=== PATIENT | male | born 1945 | race Caucasian/White ===

== ENCOUNTER 2016-09-07 13:52 | Inpatient (IN) | payer MEDICARE, OTHER ==
--- NOTE | ~2016-09-07 | HP ---
History And Physical [facility] [address] [place]. [address] NAME: KEENAN HERNANDES : 45 STATUS : ADM IN [facility]#: [id number] AGE: 70 ADM/REG DATE : 09/07/16 MR#: [id number] REPORT SERV DATE: 09/08/16 DICTATED BY: LUCIANA ROSA DATE: 09/07/16 REPORT STATUS : Draft TRANSCRIBED BY: MODTerrence DATE: 09/07/16 DATE OF ADMISSION: 09/07/2016 CHIEF COMPLAINT: The patient was transferred from [facility] to [facility] with concern of acute bilateral pulmonary embolus, questionable pneumonia, and severe abdominal pain following nine days post prostatectomy. HISTORY OF PRESENT ILLNESS: This is a 70-year-old male with medical history significant for prostate cancer, status post prostatectomy nine days ago, nephrolithiasis status post ureteral stones removal three weeks ago, who presented to the emergency department at [facility] with chief complaints of abdominal pain and shortness of breath. The patient reported that he underwent a lithotripsy three weeks ago without any significant complications. He reported he was in good health and subsequently underwent a prostatectomy performed by Dr. Trujillo about nine days ago for stage III prostate cancer. He reported that the surgery went successfully without any complications and was subsequently discharged home with a urinary Trujillo catheter. He went back to Dr. Trujillo's office 24 hours ago to remove the Trujillo without any complication; however, when he got home, he reported that he was only able to have minimal urine output, subsequently developed severe abdominal pain. The pain was 10/10 in severity, sharp in nature, radiating to the groin area. No known aggravating or relieving factor. The pain became progressively worsen and subsequently noted to have develop severe difficulty breathing both on exertion and progressively it got worse to the point that he became short of breath at rest. Given his worsening shortness of breath and severe abdominal pain he decided to go to the nearest emergency room at [facility] where he was evaluated. On arriving at the emergency room, he was noted to be hypoxic, tachycardic, and severe abdominal pain. He had a CTA of the chest and a CT scan of the abdomen and pelvis. The CTA showed massive bilateral pulmonary embolus, and new onset infiltrates. Also concerning for pneumonia. The CT of the abdomen and pelvis revealed free fluid within the pelvis and surrounding the liver. Also noted was fat stranding surrounding the descending colon concerning for early diverticulitis. The patient also noted to have positive urine concerning for urinary tract infection. Given the patient recently had surgery with Dr. Trujillo, the patient's family requested a transfer to [facility] for further evaluation. At the bedside during my review of the examination, the patient denied any fever, denies any chills, denies any cough. No headache, no blurry vision, no upper or lower extremity weakness. Denies any nausea or vomiting, but confirmed the presence of persistent abdominal pain as stated above. REVIEW OF SYSTEMS: Essentially as per HPI. A 12-point review of systems performed, positive findings as per HPI. Rest of the systems essentially negative. ALLERGIES: THE PATIENT IS ALLERGIC TO PENICILLIN BY RASH. HOME MEDICATION: 1. Meloxicam oral one p.o. daily. History And Physical [address] [address] NAME: KEENAN HERNANDES : 45 STATUS : ADM IN [facility]#: [id number] AGE: 70 ADM/REG DATE : 09/07/16 MR#: [id number] REPORT SERV DATE: 09/08/16 DICTATED BY: LUCIANA ROSA DATE: 09/07/16 REPORT STATUS : Draft TRANSCRIBED BY: MOHSEN DATE: 09/07/16 2. Omeprazole one p.o. daily. 3. Vitamin D one p.o. daily. 4. Hydrocodone/acetaminophen one p.o. b.i.d. 5. Michelle one p.o. daily. PAST MEDICAL HISTORY: 1. Prostate cancer, stage 3. 2. Nephrolithiasis. PAST SURGICAL HISTORY: 1. Prostatectomy surgery. 2. Lithotripsy. 3. Skin surgeries. SOCIAL HISTORY: Quit tobacco use several years ago. Drinks alcohol occasionally. Denies illicit drug use. Presently cohabits with his without any difficulty. The patient is currently retired. FAMILY HISTORY: Significant for history of congestive heart failure in his brother who passed at the age of 70. Also noted to have a history significant for lung cancer in the mother. PHYSICAL EXAMINATION: VITAL SIGNS: At the time of my evaluation, blood pressure was 140/53 mmHg, respiratory rate was 40 cycles per minute, saturating 92% on 10 L of intranasal oxygen, and pulse rate 118 beats cycle per minute. CONSTITUTIONAL: He is ill-appearing in severe acute pain distress due to abdominal pain. Also noted to be in mild respiratory distress due to shortness of breath. HEENT: Extraocular muscle intact. Pupils equal, round, and reactive. Not pale. Trace cyanotic. NECK: Supple. CHEST: Nontender. LUNGS: Bibasilar rales noted. HEART: S1, S2. Regular rate and rhythm. No murmurs. ABDOMEN: Bowel sounds normoactive, diffuse. Severe abdominal tenderness with guarding. Suprapubic tenderness without rebound. Noted to have diffuse abdominal tenderness and guarding. No rebound tenderness. No palpably enlarged organomegaly. EXTREMITIES: No pedal edema. NEUROLOGY: Alert and oriented x3. Strength in all extremities 5/5. LABORATORY DATA: Laboratory data at [facility]. WBC 13.8, hemoglobin 13.9, hematocrit 42.0, and platelets 287. Chemistry: Serum sodium 141, serum potassium 3.9, serum chloride 105, bicarb 28, serum creatinine 1.2, BUN 20.9, glucose 122, albumin 3.1, AST 20, ALT 24, and alkaline phosphatase 100. History And Physical [address] [address] NAME: KEENAN HERNANDES : 45 STATUS : ADM IN [facility]#: [id number] AGE: 70 ADM/REG DATE : 09/07/16 MR#: [id number] REPORT SERV DATE: 09/08/16 DICTATED BY: LUCIANA ROSA DATE: 09/07/16 REPORT STATUS : Draft TRANSCRIBED BY: MODL DATE: 09/07/16 IMAGIN. CTA of the chest reports segmental and subsegmental left upper and lingular pulmonary emboli. Extensive emboli noted within the right middle and lower lobe arteries. 2. Right lower lobe infiltrate present. 3. Abdomen and pelvis, preliminary report from [facility]. Bibasilar atelectasis. Free fluid in the pelvis and surrounding liver. Left renal cyst. Anterior abdominal wall gas which could be secondary to recent instrumentation. Fat stranding surrounding the descending colon concerning for early diverticulitis. SUMMARY: This is a 70-year-old male, who transferred from [facility] to [facility] with concern for bilateral PE, right lower lobe pneumonia, acute diverticulitis, urinary tract infection, and nine days post prostatectomy. ASSESSMENT AND PLAN: 1. Hypoxic respiratory failure secondary to massive bilateral pulmonary embolism and pneumonia. The patient is currently saturating at 92% on 10 L of nasal oxygen. I have recommended, if the patient continue to be persistently hypoxic we will transition the patient to Vapotherm ICU. We will also have a low threshold of consult in the ICU for possible transfer for intubation for persistent respiratory failure. 2. Bilateral pulmonary embolus. Presently the patient on heparin drip. I will hold off initiating chronic anticoagulation at this point, given that the patient may require an additional abdominal intervention. Given the patient has a history of recent surgery the patient will not be a candidate for systemic thrombolysis. Hence, we will continue to monitor patient closely. Also, the patient's blood pressure is currently holding. If the patient become hypertensive I will consider transferring to ICU. 3. Pneumonia. CT scan at the outside hospital showed a right pulmonary infiltrate. WBC is elevated at 13.3. We will check a procalcitonin. We will also order sputum culture and blood cultures at this time. We will place the patient on vanc and cefepime. 4. Abdominal pain likely secondary to urinary retention as well as acute diverticulitis. Free fluid within the pelvis and surrounding liver as well as anterior abdominal wall gas likely secondary to instrumentation from prostatectomy. I have consulted Urology to further evaluate the patient given recent prostatectomy. We will also continue to monitor the patient closely. We will continue IV antibiotics at this time. 5. Prostate cancer, stage III, status post prostatectomy. We will continue to monitor the patient at this time. 6. Urinary tract infection. We will send for UA, urinalysis, and urine culture. We will continue the patient on broad-spectrum antibiotics, pending urine culture. 7. Per family wishes the patient is currently full code. IOO/MODL Luciana Rosa MD / [id number] History And Physical [address] [address] NAME: KEENAN HERNANDES : 45 STATUS : ADM IN PAT#: [id number] AGE: 70 ADM/REG DATE : 09/07/16 MR#: [id number] REPORT SERV DATE: 09/08/16 DICTATED BY: LUCIANA ROSA DATE: 09/07/16 REPORT STATUS : Draft TRANSCRIBED BY: MOHSEN DATE: 09/07/16 CC: MD Kirk Osman MD
--- NOTE | ~2016-09-07 | CN ---
Consultation Report [facility] [address] [place]. [address] NAME: KEENAN HERNANDES : 45 STATUS : ADM IN [facility]#: [id number] AGE: 70 ADM/REG DATE : 09/07/16 MR#: [id number] REPORT SERV DATE: 09/08/16 DICTATED BY: SHIMA SAMPSON DATE: 09/07/16 REPORT STATUS : Draft TRANSCRIBED BY: MODL DATE: 09/07/16 UROLOGY CONSULT DATE OF CONSULTATION: This consult is from Dr. Benoit regarding abdominal pain. CHIEF COMPLAINT: "My belly hurts". I am seeing this patient for Dr. Trujillo in his absence. HISTORY: This is a 70-year-old gentleman, who is status post a robotic prostatectomy by Dr. Trujillo on 08/29/2016. The patient states, Friday he was outside walking with his when he had sudden shortness of breath. He has had shortness of breath, especially with exertion since that time. Yesterday, he had his catheter removed by Dr. Trujillo in his office. The patient states that he had 1 good void with a stream after that, but since that time, he has been straining with a dribbling stream and leaking into a diaper. Last night around 11 p.m., he began having abdominal pain. He though it was gas pain from a milkshake. He presented to the [facility] in [place] at 4 a.m. this morning. They diagnosed him with bilateral pulmonary emboli, right lower lobe pneumonia, and a urinary tract infection. His white blood cell count was 13.8 with a left shift. Creatinine of 1.2. Urinalysis was positive for nitrites, 3+ leukocyte esterase, greater than 100 red blood cells, greater than 100 white blood cells, many bacteria. CT scan of the abdomen also mentions free fluid in the pelvis and around the liver and anterior abdominal wall gas, which may be secondary to recent instrumentation, fat stranding surrounding the descending colon concerning for early diverticulitis. To my eyes, his bladder is also largely distended. The amount of fluid around the liver is quite small. The pelvic fluid appears within normal limits at this point, postoperatively. He was transferred to [facility] on the hospitalist service for higher level of care due to his lung issues. PAST MEDICAL HISTORY: Significant for prostate cancer, kidney stones, and skin cancer treated with radiation. PAST SURGICAL HISTORY: Radical prostatectomy on 08/29/2016. He has also had lithotripsy for kidney stones. ALLERGIES: PENICILLIN. MEDICATIONS: At home, meloxicam, omeprazole, vitamin D, hydrocodone, and Michelle. SOCIAL HISTORY: He is . He used to smoke cigarettes. REVIEW OF SYSTEMS: GENERAL: He denies fever, chills. NEUROLOGIC: Denies symptoms. Consultation Report [address] [place]. [address] NAME: KEENAN HERNANDES : 45 STATUS : ADM IN [facility]#: [id number] AGE: 70 ADM/REG DATE : 09/07/16 MR#: [id number] REPORT SERV DATE: 09/08/16 DICTATED BY: SHIMA SAMPSON DATE: 09/07/16 REPORT STATUS : Draft TRANSCRIBED BY: MOHSEN DATE: 09/07/16 LUNGS: As above. HEART: Denies symptoms. GI: As above. : As above. PHYSICAL EXAMINATION: VITAL SIGNS: He is afebrile. Blood pressure 140/53, pulse rate of 118. He is saturating 92% on 10 L of oxygen. Respiratory rate of 40 times per minute. GENERAL: He is in mild distress. NEUROLOGIC: Alert and oriented x3. PSYCHIATRIC: Appropriate. HEENT: Facial features symmetric. Eyes, sclerae anicteric. NECK: Supple. LUNGS: Decreased inspiratory effort bilaterally. HEART: Tachycardic with a regular rhythm. ABDOMEN: Soft. He is tender all over his abdomen, but no rebound tenderness. His bladder is palpable. His incisions are well healed. EXTREMITIES: Show no edema. LABORATORY STUDIES: White count of 13.8 with a left shift. Hemoglobin 13.9, hematocrit 42, platelets 287. Sodium 141, potassium 3.9, chloride 105, CO2 of 28, BUN of 20.9, creatinine of 1.2. Glucose of 122. Urinalysis as stated above. CT scan as stated above. PROCEDURE IN DETAIL: After prep, flexible cystoscopy was performed at the bed side. The anastomosis was negotiated easily. The urine in the bladder was cloudy and concentrated. No clots were visualized on a quick assessment. A Bentson wire was passed through the scope and allowed to curl in the bladder. The scope was backed out of the urethra under guidance. An 18-[place] was passed over the wire to the hub. 15 mL of sterile water was placed in the balloon and the balloon was seated at the bladder neck. The catheter was placed to bag drainage. Approximately 500 mL of concentrated yellow urine was drained. The patient tolerated well. The catheter was secured to the patient. IMPRESSION: 1. Urinary retention status post prostatectomy. 2. Urinary tract infection. 3. Bilateral pulmonary emboli. 4. Pneumonia. 5. Possible early diverticulitis. PLAN: 1. Trujillo catheter to stay for now. 2. He is already on broad-spectrum antibiotics while awaiting his culture results. 3. We will monitor with you. Consultation Report [address] [address] NAME: KEENAN HERNANDES : 45 STATUS : ADM IN [facility]#: [id number] AGE: 70 ADM/REG DATE : 09/07/16 MR#: [id number] REPORT SERV DATE: 09/08/16 DICTATED BY: SHIMA SAMPSON DATE: 09/07/16 REPORT STATUS : Draft TRANSCRIBED BY: MOHSEN DATE: 09/07/16 DANILO/MOHSEN Shima Sampson M.D. / [id number] CC: MD Kirk Osman MD
--- NOTE | ~2016-09-07 | DS ---
Discharge Summary [facility] [address] [place]. [address] NAME: KEENAN HERNANDES : 45 STATUS : DIS IN PAT#: [id number] AGE: 70 ADM/REG DATE : 09/07/16 MR#: [id number] REPORT SERV DATE: 09/13/16 DICTATED BY: MADDIE FORD DATE: 09/12/16 REPORT STATUS : Draft TRANSCRIBED BY: MODL DATE: 09/12/16 ADMISSION DATE: 09/07/2016 DISCHARGE DATE: 09/12/2016 The patient is a 70-year-old male with a history of prostate cancer stage III status post prostatectomy and nephrolithiasis status post lithotripsy who was transferred from [facility] with concerns of acute bilateral pulmonary embolus. For further details, please refer to H and P dictated by Dr. Benoit on 09/08/2016. HOSPITAL COURSE: Upon arrival, imaging studies performed here confirmed pulmonary embolus bilaterally. The patient was started on IV heparin drip. Also, given his recent prostatectomy, Urology was following the patient during this hospital course. Also, preliminary workup included UA which was obtained. Urine culture came back positive for Klebsiella resistant to multiple organisms. The patient was started on meropenem for control. During hospital course to evaluate his pulmonary embolism, a transthoracic echocardiogram was ordered which noted no significant right heart strain. The patient remained hemodynamically throughout his hospitalization without requiring acute intervention in terms of inter-catheter directed thrombolysis. The patient has remained hemodynamically stable on heparin drip. Given the patient's preference, the patient will be transitioned to p.o. anticoagulation with Eliquis and discharged home today. Also for his UTI secondary to Klebsiella infection, the patient initially on meropenem has responded appropriately on that medication. We will transition the patient off meropenem to p.o. fosfomycin. Given completion of workup, given his hemodynamic stability, we will discharge patient home to follow up with Urology and primary care as outpatient. Plan has been discussed with the patient who voices understanding and is agreeable with this plan. DISCHARGE DIAGNOSES: 1. Bilateral pulmonary embolism. 2. Urinary tract infection secondary to Klebsiella. 3. Urinary retention. 4. Obesity. 5. Hypertension. DISCHARGE PHYSICAL EXAMINATION: GENERAL: The patient is sitting in chair, in no acute distress. Speaking in full sentences. Appears stated age. HEENT: Normocephalic, atraumatic. Extraocular motors intact. NECK: Trachea midline and symmetric. No JVD noted. No thyromegaly noted. CHEST: Nontender to palpation. CARDIOVASCULAR: Regular rate and rhythm. S1, S2. No murmurs, rubs, or gallops. LUNGS: Clear to auscultation bilaterally. ABDOMEN: Positive bowel sounds. Nontender. Nondistended. EXTREMITIES: Trace pitting edema. No evidence of cyanosis or clubbing. NEUROLOGIC: Alert and oriented x3. DISCHARGE MEDICATIONS: His home medications were all continued including vitamin D 2000 units, omega-3 fatty acid 1000 mg p.o., omeprazole 40 mg p.o. daily, meloxicam 15 mg p.o., Discharge Summary [address] [address] NAME: KEENAN HERNANDES : 45 STATUS : DIS IN PAT#: [id number] AGE: 70 ADM/REG DATE : 09/07/16 MR#: [id number] REPORT SERV DATE: 09/13/16 DICTATED BY: MADDIE FORD DATE: 09/12/16 REPORT STATUS : Draft TRANSCRIBED BY: MOHSEN DATE: 09/12/16 fosfomycin 3 g p.o. q.48 hours, Eliquis 10 mg p.o. b.i.d. for 5 days and then transition to 5 mg p.o. b.i.d. DISPOSITION: The patient will be discharged home. ACTIVITY: As tolerated. DIET: Low-salt diet. Greater than 30 minutes was spent dictating note, coordinating care, medication reconciliation, writing prescription, and discussing care with Case Management. ROGELIO/MOHSEN Maddie Ford MD / [id number] CC: MD Kirk Evans MD
[~2016-09-07 13:52] MED LIST: ASAB PO; FISH OIL1200 MG PO; FLOMAX4 PO; MELA3 PO; MOBIC15 MG PO; MULTIPLE VIT PO; NORCO1 TA1 PO; PRILOSEC40 MG PO; REST15 PO; VITAMIN D31000 UNIT PO; ZANAFLEX 4 MG TA4 MG PO
[2016-09-07] MEDS ORDERED: PRILOSEC40 MG PO (15:38)
[2016-09-07] MEDS ORDERED: MOBIC15 MG PO (15:38)
[2016-09-07] MEDS ORDERED: VITAMIN D2000 UNIT PO (15:38)
[2016-09-07] MEDS ORDERED: FISH-EPA1000 MG PO (15:39)
[2016-09-07] MEDS ORDERED: ALLEGRA180 PO (15:41)
[2016-09-07] MEDS ORDERED: NORCO1 TA2 PO (15:41)
[2016-09-07] MEDS ORDERED: CENTRUM PO (15:42)
[2016-09-07 20:12] LABS: HEMATOCRIT 45.2 % (40.0-51.0); HEMOGLOBIN 14.9 g/dL (13.6-17.8); MEAN CORPUSCULAR HEMOGLOB 27.6 pg (26.0-34.0); MEAN CORPUSCULAR VOLUME 83.7 fL (80-100); MEAN PLATELET VOLUME 8.9 fL (9.2-13.0); PLATELET COUNT 306 10/3/uL (150-400); RBC DISTRIBUTION WIDTH 15.9 % (12.0-16.0)
[2016-09-07 20:13] LABS: MANUAL DIFF YES %; WHITE BLOOD CELLS 27.5 10/3/uL (4.5-10.5)
[2016-09-07 20:26] LABS: ALBUMIN 2.9 G/DL (3.5-5.0); CALCIUM, SERUM 8.5 MG/DL (8.5-10.4); CHLORIDE, SERUM 109 MMOL/L (96-112); GFR AFRICAN AMERICAN 35 ML/MIN (>=60); GFR NON AFRICAN AMERICAN 31 ML/MIN (>=60); GLUCOSE, SERUM 132 MG/DL (60-99); PHOSPHORUS, SERUM 3.2 MG/DL (2.5-4.5); POTASSIUM, SERUM 4.6 MMOL/L (3.5-5.3); SODIUM, SERUM 142 MMOL/L (135-148); TROPONIN I 0.03 NG/ML (<0.05)
[2016-09-07 20:27] LABS: BUN (BLOOD UREA NITROGEN) 32 MG/DL (6-23); CO2 (CARBON DIOXIDE) 21 MMOL/L (24-34); CREATININE 2.12 MG/DL (0.70-1.30)
[2016-09-07 20:34] LABS: BAND NEUTROPHILS 22 %; LYMPHOCYTES 4 %; MONOCYTES 2 %; MONOCYTES ABSOLUTE (CALC) 0.55 10/3/uL (0.21-1.20); NEUTROPHILS ABSOLUTE (CALC) 25.85 10/3/uL (2.02-8.40); SEGMENTED NEUTROPHIL (0) 72 %; TOTAL NUCLEATED CELLS 100
[2016-09-07 20:35] LABS: PLATELET ESTIMATE ADQ (ADEQUATE)
[2016-09-08 05:18] LABS: HEMATOCRIT 42.6 % (40.0-51.0); HEMOGLOBIN 13.8 g/dL (13.6-17.8); MEAN CORPUS HGB CONC 32.4 g/dL (32.0-36.0); MEAN CORPUSCULAR HEMOGLOB 27.4 pg (26.0-34.0); MEAN CORPUSCULAR VOLUME 84.5 fL (80-100); PLATELET COUNT 305 10/3/uL (150-400); RBC DISTRIBUTION WIDTH 16.1 % (12.0-16.0); RED CELL COUNT 5.04 10/6/uL (4.7-6.1)
[2016-09-08 05:32] LABS: MANUAL DIFF YES %; WHITE BLOOD CELLS 25.8 10/3/uL (4.5-10.5)
[2016-09-08 05:33] LABS: BUN (BLOOD UREA NITROGEN) 42 MG/DL (6-23); CALCIUM, SERUM 8.8 MG/DL (8.5-10.4); CHLORIDE, SERUM 110 MMOL/L (96-112); CO2 (CARBON DIOXIDE) 20 MMOL/L (24-34); CREATININE 1.34 MG/DL (0.70-1.30); GFR AFRICAN AMERICAN 62 ML/MIN (>=60); GFR NON AFRICAN AMERICAN 53 ML/MIN (>=60); GLUCOSE, SERUM 144 MG/DL (60-99); POTASSIUM, SERUM 4.2 MMOL/L (3.5-5.3); SODIUM, SERUM 141 MMOL/L (135-148)
[2016-09-08 05:51] LABS: BAND NEUTROPHILS 36 %; LYMPHOCYTES 6 %; LYMPHOCYTES ABSOLUTE (CALC) 1.55 10/3/uL (0.67-4.30); NEUTROPHILS ABSOLUTE (CALC) 24.25 10/3/uL (2.02-8.40); PLATELET ESTIMATE ADQ (ADEQUATE); RBC MORPHOLOGY NORM (NORMAL); SEGMENTED NEUTROPHIL (0) 58 %; TOTAL NUCLEATED CELLS 100; TOXIC GRANULATION 1+
[2016-09-08 10:37] LABS: ASCORBIC ACID (UR NOT ORDER) NEG (NEG); BILIRUBIN, URINE NEGATIVE (NEG); KETONE, URINE NEGATIVE (NEG); LEUKOCYTE ESTERASE(NOT OR LARGE (NEG); WBC (NOT ORDERED) (RFLEX) > 182 (0-5)
[2016-09-09 06:47] LABS: BASOPHILS 0.1 %; BASOPHILS ABSOLUTE 0.02 10/3/uL (0.0-0.16); EOSINOPHILS 0.3 %; EOSINOPHILS ABSOLUTE 0.06 10/3/uL (0.0-0.53); HEMATOCRIT 35.7 % (40.0-51.0); HEMOGLOBIN 11.6 g/dL (13.6-17.8); IMMATURE GRANULOCYTES 0.5 %; IMMATURE GRANULOCYTES ABSOLUTE 0.12 10/3/uL (0.0-0.11); LYMPHOCYTES 6.1 %; LYMPHOCYTES ABSOLUTE 1.35 10/3/uL (0.67-4.30); MANUAL DIFF NO %; MEAN CORPUS HGB CONC 32.5 g/dL (32.0-36.0); MEAN CORPUSCULAR HEMOGLOB 27.4 pg (26.0-34.0); MEAN CORPUSCULAR VOLUME 84.2 fL (80-100); MEAN PLATELET VOLUME 8.9 fL (9.2-13.0); MONOCYTES 4.6 %; MONOCYTES ABSOLUTE 1.01 10/3/uL (0.21-1.20); NEUTROPHILS 88.4 %; NEUTROPHILS ABSOLUTE 19.49 10/3/uL (2.02-8.40); PLATELET COUNT 280 10/3/uL (150-400); RBC DISTRIBUTION WIDTH 16.1 % (12.0-16.0); RED CELL COUNT 4.24 10/6/uL (4.7-6.1); WHITE BLOOD CELLS 22.1 10/3/uL (4.5-10.5)
[2016-09-09 06:57] LABS: ALBUMIN 2.3 G/DL (3.5-5.0); BUN (BLOOD UREA NITROGEN) 51 MG/DL (6-23); CALCIUM, SERUM 8.8 MG/DL (8.5-10.4); CHLORIDE, SERUM 106 MMOL/L (96-112); CO2 (CARBON DIOXIDE) 23 MMOL/L (24-34); CREATININE 0.85 MG/DL (0.70-1.30); GFR AFRICAN AMERICAN 102 ML/MIN (>=60); GFR NON AFRICAN AMERICAN 88 ML/MIN (>=60); GLUCOSE, SERUM 101 MG/DL (60-99); PHOSPHORUS, SERUM 2.1 MG/DL (2.5-4.5); POTASSIUM, SERUM 3.9 MMOL/L (3.5-5.3); SODIUM, SERUM 138 MMOL/L (135-148)
[2016-09-09 16:17] LABS: HEMATOCRIT 32.8 % (40.0-51.0); HEMOGLOBIN 10.6 g/dL (13.6-17.8)
[2016-09-09 21:20] LABS: HEMATOCRIT 31.4 % (40.0-51.0); HEMOGLOBIN 10.3 g/dL (13.6-17.8)
[2016-09-10 05:21] LABS: BASOPHILS 0.1 %; BASOPHILS ABSOLUTE 0.01 10/3/uL (0.0-0.16); EOSINOPHILS 2.2 %; EOSINOPHILS ABSOLUTE 0.36 10/3/uL (0.0-0.53); HEMATOCRIT 30.8 % (40.0-51.0); HEMOGLOBIN 10.1 g/dL (13.6-17.8); IMMATURE GRANULOCYTES 0.4 %; IMMATURE GRANULOCYTES ABSOLUTE 0.07 10/3/uL (0.0-0.11); LYMPHOCYTES 6.7 %; MEAN CORPUS HGB CONC 32.8 g/dL (32.0-36.0); MEAN CORPUSCULAR HEMOGLOB 27.2 pg (26.0-34.0); MEAN PLATELET VOLUME 8.9 fL (9.2-13.0); MONOCYTES 4.5 %; MONOCYTES ABSOLUTE 0.74 10/3/uL (0.21-1.20); NEUTROPHILS 86.1 %; PLATELET COUNT 282 10/3/uL (150-400); RBC DISTRIBUTION WIDTH 15.9 % (12.0-16.0); RED CELL COUNT 3.71 10/6/uL (4.7-6.1); WHITE BLOOD CELLS 16.4 10/3/uL (4.5-10.5)
[2016-09-10 05:23] LABS: MANUAL DIFF NO %
[2016-09-10 05:56] LABS: CHLORIDE, SERUM 106 MMOL/L (96-112); CO2 (CARBON DIOXIDE) 24 MMOL/L (24-34); CREATININE 0.68 MG/DL (0.70-1.30); GFR AFRICAN AMERICAN 112 ML/MIN (>=60); GFR NON AFRICAN AMERICAN 97 ML/MIN (>=60); GLUCOSE, SERUM 110 MG/DL (60-99); POTASSIUM, SERUM 4.1 MMOL/L (3.5-5.3); SODIUM, SERUM 139 MMOL/L (135-148)
[2016-09-10 05:57] LABS: BUN (BLOOD UREA NITROGEN) 34 MG/DL (6-23)
[2016-09-10 09:46] LABS: VANCOMYCIN TROUGH 10.8 MCG/ML (10.0-20.0)
[2016-09-10 20:30] LABS: HEMATOCRIT 34.1 % (40.0-51.0); HEMOGLOBIN 11.2 g/dL (13.6-17.8)
[2016-09-10 20:38] LABS: PARTIAL THROMBO TIME 65.4 SEC (22.5-37.2)
[2016-09-11 06:59] LABS: BASOPHILS 0.1 %; BASOPHILS ABSOLUTE 0.01 10/3/uL (0.0-0.16); EOSINOPHILS 2.6 %; EOSINOPHILS ABSOLUTE 0.36 10/3/uL (0.0-0.53); HEMATOCRIT 32.8 % (40.0-51.0); HEMOGLOBIN 10.9 g/dL (13.6-17.8); IMMATURE GRANULOCYTES 0.7 %; LYMPHOCYTES 8.8 %; LYMPHOCYTES ABSOLUTE 1.23 10/3/uL (0.67-4.30); MEAN CORPUS HGB CONC 33.2 g/dL (32.0-36.0); MEAN CORPUSCULAR HEMOGLOB 27.2 pg (26.0-34.0); MEAN CORPUSCULAR VOLUME 81.8 fL (80-100); MEAN PLATELET VOLUME 9.1 fL (9.2-13.0); MONOCYTES ABSOLUTE 1.25 10/3/uL (0.21-1.20); NEUTROPHILS 78.8 %; NEUTROPHILS ABSOLUTE 10.98 10/3/uL (2.02-8.40); PLATELET COUNT 308 10/3/uL (150-400); RBC DISTRIBUTION WIDTH 15.6 % (12.0-16.0); RED CELL COUNT 4.01 10/6/uL (4.7-6.1); WHITE BLOOD CELLS 13.9 10/3/uL (4.5-10.5)
[2016-09-11 07:01] LABS: MANUAL DIFF NO %
[2016-09-11 07:09] LABS: PARTIAL THROMBO TIME 90.6 SEC (22.5-37.2)
[2016-09-11 07:18] LABS: A/G RATIO 0.6 (0.7-1.9); ALBUMIN 2.1 G/DL (3.5-5.0); ALKALINE PHOSPHATASE 93 U/L (45-117); BUN (BLOOD UREA NITROGEN) 21 MG/DL (6-23); CALCIUM, SERUM 8.2 MG/DL (8.5-10.4); CHLORIDE, SERUM 105 MMOL/L (96-112); CO2 (CARBON DIOXIDE) 24 MMOL/L (24-34); CREATININE 0.61 MG/DL (0.70-1.30); GFR AFRICAN AMERICAN 117 ML/MIN (>=60); GFR NON AFRICAN AMERICAN 101 ML/MIN (>=60); GLOBULIN 3.7 G/DL (2.5-4.1); GLUCOSE, SERUM 114 MG/DL (60-99); POTASSIUM, SERUM 3.8 MMOL/L (3.5-5.3); SGOT(AST) 40 U/L (5-40); SGPT(ALT) 44 U/L (5-65); SODIUM, SERUM 138 MMOL/L (135-148); TOTAL BILIRUBIN 1.1 MG/DL (0-1.2); TOTAL PROTEIN 5.8 G/DL (6.0-8.5)
[2016-09-12 03:45] LABS: BASOPHILS 0.3 %; BASOPHILS ABSOLUTE 0.04 10/3/uL (0.0-0.16); EOSINOPHILS 4.3 %; EOSINOPHILS ABSOLUTE 0.65 10/3/uL (0.0-0.53); HEMATOCRIT 30.3 % (40.0-51.0); HEMOGLOBIN 9.7 g/dL (13.6-17.8); IMMATURE GRANULOCYTES 1.3 %; IMMATURE GRANULOCYTES ABSOLUTE 0.19 10/3/uL (0.0-0.11); LYMPHOCYTES 13.2 %; LYMPHOCYTES ABSOLUTE 1.98 10/3/uL (0.67-4.30); MEAN CORPUSCULAR HEMOGLOB 26.1 pg (26.0-34.0); MEAN CORPUSCULAR VOLUME 81.5 fL (80-100); MEAN PLATELET VOLUME 9.1 fL (9.2-13.0); MONOCYTES 6.9 %; MONOCYTES ABSOLUTE 1.03 10/3/uL (0.21-1.20); NEUTROPHILS ABSOLUTE 11.08 10/3/uL (2.02-8.40); PLATELET COUNT 371 10/3/uL (150-400); RBC DISTRIBUTION WIDTH 15.6 % (12.0-16.0); RED CELL COUNT 3.72 10/6/uL (4.7-6.1)
[2016-09-12 03:48] LABS: MANUAL DIFF NO %
[2016-09-12 04:11] LABS: A/G RATIO 0.6 (0.7-1.9); ALKALINE PHOSPHATASE 90 U/L (45-117); CALCIUM, SERUM 8.2 MG/DL (8.5-10.4); CHLORIDE, SERUM 107 MMOL/L (96-112); CO2 (CARBON DIOXIDE) 27 MMOL/L (24-34); CREATININE 0.65 MG/DL (0.70-1.30); GFR AFRICAN AMERICAN 114 ML/MIN (>=60); GFR NON AFRICAN AMERICAN 99 ML/MIN (>=60); GLOBULIN 3.4 G/DL (2.5-4.1); GLUCOSE, SERUM 111 MG/DL (60-99); POTASSIUM, SERUM 3.7 MMOL/L (3.5-5.3); SGOT(AST) 34 U/L (5-40); SGPT(ALT) 45 U/L (5-65); SODIUM, SERUM 142 MMOL/L (135-148); TOTAL PROTEIN 5.4 G/DL (6.0-8.5)
[2016-09-12 04:16] LABS: BUN (BLOOD UREA NITROGEN) 17 MG/DL (6-23); TOTAL BILIRUBIN 0.6 MG/DL (0-1.2)
[2016-09-12 04:31] LABS: PARTIAL THROMBO TIME > 150.0 SEC (22.5-37.2)
[2016-09-12] MEDS ORDERED: ELIQUIS 5 MG TAB5 MG PO (15:36)
[2016-09-12] MEDS ORDERED: MONUROL PO (15:37)
[2016-09-12] MEDS ORDERED: ELIQUIS PO (15:38)
== END 2016-09-12 18:23 | disposition home or self-care (01) | DRG 871 ==
LOC: IMCU 13:52 → 2SO 09-09 18:18
PROVIDERS: Hospitalist; Internal Medicine
PROC: 0T9B80Z Drainage of Bladder with Drainage Device, Via Natural or Artificial Opening Endoscopic (ICD-10-PCS; principal; 2016-09-07)
DX: A41.9 Sepsis, unspecified organism (principal); I26.99 Other pulmonary embolism without acute cor pulmonale; J96.01 Acute respiratory failure with hypoxia; J18.9 Pneumonia, unspecified organism; N28.1 Cyst of kidney, acquired; K57.92 Diverticulitis of intestine, part unspecified, without perforation or abscess without bleeding; N39.0 Urinary tract infection, site not specified; J98.11 Atelectasis; C61 Malignant neoplasm of prostate; B96.1 Klebsiella pneumoniae [K. pneumoniae] as the cause of diseases classified elsewhere; I10 Essential (primary) hypertension; R33.9 Retention of urine, unspecified; E66.9 Obesity, unspecified; Z92.3 Personal history of irradiation; Z88.0 Allergy status to penicillin; Z85.828 Personal history of other malignant neoplasm of skin; Z68.31 Body mass index [BMI] 31.0-31.9, adult; Z82.49 Family history of ischemic heart disease and other diseases of the circulatory system
CPT/HCPCS: 36415; 71010; 76775; 80048; 80053; 80069; 80202; 81001; 82272; 83605; 83735; 84145; 84484; 85014; 85018; 85025; 85730; 86850; 86900; 86901; 86920; 87040; 87077; 87086; 87186; 93005; 97116-GP; 97162-GP; A9270-GY; C8929; C9113; G8978-CK-GP; G8979-CI-GP; J0692; J2185; J3370; Q9957